=== PATIENT | male | born 1940 | race Caucasian/White ===

== ENCOUNTER → 2017-06-15 | Day surgery (SDC) | payer OTHER ==
--- NOTE | 2017-06-14 13:30 | History & Physical Pre-Op ---
General Information and HPI History of Present Illness: Patient presents for evaluation of 2 processes. He has increasing size and have a long-standing left inguinal hernia. It has been present for many years and it has been observed successfully. He now notes increasing size of it associated with intermittent constipation. There is no bloating or severe pain. It spontaneously reduces at night. Allergies/Medications Allergies: Coded Allergies: No Known Allergies (06/14/17) Home Med list Ciprofloxacin HCl (Cipro) 500 MG TABLET 1 TAB PO BID diverticulitis Metronidazole (Flagyl) 500 MG TABLET 1 TAB PO TID diverticulitis Multivitamin (Multi-Day Vitamins) 1 EACH TABLET 0.5 TAB PO DAILY SUPPLEMENT ( Reported) Naproxen Sodium (Aleve) 220 MG CAPSULE 1 CAP PO DAILY PAIN (Reported) Nystatin 100,000 UNIT/GRAM OINT...G. 1 GOYO TOP TID fungal infection apply to affected area(s) Past History Medical History Gastrointestinal: GERD, hiatal hernia Musculoskeletal: rheumatoid arthritis Surgical History Pertinent Surgical History: spinal fusion, ankle , tonsillectomy Past Family/Social History Psychosocial History Smoking Status: Never Smoked ETOH Use: occasional use Review of Systems Review of Systems: Patient reports hearing loss but reports no ear pain, no sneezing, no frequent nosebleeds, no nose/sinus problems, no bleeding gums, no snoring, no dry mouth, no mouth ulcers, no teeth problems, no headaches, and no sore throat. He reports shortness of breath but reports no cough, no wheezing, and no coughing up blood. He reports vomiting, constipation, and difficulty swallowing but reports normal appetite, no abdominal pain, no vomiting blood, no bloating, no diarrhea, no belching, no constipation, no regurgitation, and no rectal bleeding. He reports difficulty urinating but reports no incontinence, no hematuria, and no increased frequency. He reports arthralgias/joint pain but reports no muscle aches, no muscle weakness, and no back pain. He reports no fatigue, no fever, no night sweats, no significant weight gain, no significant weight loss, and no exercise intolerance. He reports no abnormal moles, no jaundice, no hives, no eczema, and no rashes. He reports no swollen glands and no neck stiffness. He reports no chest pain, no arm pain on exertion, no shortness of breath when walking, no shortness of breath when lying down, no palpitations, and no known heart murmur. Exam & Diagnostic Data Last 24 Hrs of Vital Signs/I&O Intake & Output 06/14 1600 06/14 0800 05/08 0000 Intake Total Output Total Balance Patient 165 lb Weight Physical Exam: Patient is a 76-year-old male. Constitutional: General Appearance: healthy-appearing, well-nourished, and well- developed. Level of Distress: no acute distress. Ambulation: ambulating normally. Head: Head: normocephalic and atraumatic. Cardiovascular: Heart Auscultation: normal S1 and S2; no murmurs, rubs, or gallops; and regular rate and rhythm. Lungs: Respiratory effort: no dyspnea. Percussion: no dullness, flatness, or hyperresonance. Auscultation: no wheezing, rales/crackles, or rhonchi and breath sounds normal, good air movement, and clear to auscultation. Back: Thoracolumbar Appearance: normal curvature. Abdomen: Inspection and Palpation: no tenderness, guarding, masses, rebound tenderness, or CVA tenderness and soft and non-distended. Bowel Sounds: normal. Liver: non-tender and no hepatomegaly. Spleen: non-tender and no splenomegaly. Hernia: inguinal (Bilateral L>R. right contains large amount of bowel.). Skin: Inspection and palpation: no rash, lesions, ulcer, induration, nodules, jaundice, or abnormal nevi and good turgor. Musculoskeletal:: Extremities: no cyanosis, edema, varicosities, or palpable cord. Motor Strength and Tone: normal tone and motor strength. Joints, Bones, and Muscles: no contractures, malalignment, tenderness, or bony abnormalities and normal movement of all extremities. Assessment/Plan Assessment/Plan: Bilateral inguinal hernia - Patient has large left-sided inguinal hernia containing bowel and a smaller right-sided hernia. Given the bowel containing nature of his inguinal hernia, I recommend he undergo inguinal hernia repair, bilateral robot assisted laparoscopic, at his earliest convenience. concurrently would not be so. K40.20: Bilateral inguinal hernia, without obstruction or gangrene, not specified as recurrent Discussion Notes Discussed laparoscopic preperitoneal hernia repair with mesh, the need for general anesthesia to perform it and the outpatient nature of surgery. Discussed the outcomes of surgery including 3-5% recurrence rate, 1% infection and bleeding risk. Discussed the permanent nature of mesh for repair and need for removal if infection occurs. Discussed the small risk of testicular vessel injury and vas deferens injury (males). As Ranked By This Provider Problem List: 1. Bilateral inguinal hernia
[~2017-06-15] VITALS: Ht 177.8 cm; Wt 74.8 kg
[~2017-06-15] MED LIST: ALEVE220 M1 PO; CIPRO500 M1 PO; FLAGYL500 MG PO; MULTI-DAY VITA1 EACH PO; NYSTATIN15 GM TOP
--- NOTE | 2017-06-15 15:50 | Operative Report ---
Operative/Inv Procedure Report Surgery Date: 06/15/17 Name of Procedure: Robot-assisted laparoscopic bilateral inguinal hernia repair Pre-Operative Diagnosis: Bilateral inguinal hernia Post-Operative Diagnosis: Same Estimated Blood Loss: scant Surgeon/Barometers Calibrator: Marlon SOUZA,Antoine Sinha/Marilyn AGUERO Anesthesia: general endotracheal tube Implants: Parietex mesh Operative/Procedure Note Note: After consent is brought to the operating room laid supine. Gen. anesthesia was obtained and his abdomen was prepped and draped. The skin above the umbilicus was after local anesthesia and a transverse incision made sharply. We dissected down the fascia and grasped with Kyle's. A fasciotomies crated sharply and stay sutures placed. An 8 mm Ramirez port was placed and pneumoperitoneum achieved. 2, 8 mm ports were placed in the left and right mid abdomen under direct vision and camera. The robot was undocked and instruments inserted and direct vision. Began or dissection on the left side. There is a very large indirect hernia containing sigmoid colon. It was reduced. We then took down the peritoneum superiorly and created preperitoneal plane. This carried forth down to the pubis and the tract space was cleared. There is no direct hernia. We then went laterally and developed the iliopubic tract. Sac was then circumferentially dissected with blunt and scissor cautery dissection. This took some time as was a very large sac. It was then reflected inferiorly and the peritoneum dissected free from the cord structures. Once I was happy with the dissection attention was turned to the contralateral side. In similar fashion superiorly based flap was created of peritoneum. There was a small indirect hernia which was identified and reduced. The direct space and indirect spaces were then dissected adequately to accept a piece of repair no mesh. 2 pieces of Parietex mesh were placed in the cavity. There placed over the defects and sutured along Mayur's ligament with 2-0 Vicryl suture. There anchored anteriorly with interrupted 2-0 Vicryl. Once were happy the placement of mesh the peritoneum was then closed over them with a running 2-0V LOC absorbable suture. The needles were then extracted and passed off the field. The ports were delivered and gas allowed to escape. The fascia was closed with 0 Vicryl suture. Skin incisions closed with 4-0 Vicryl. Steri-Strips and sterile dressing applied. Sponge and needle counts are correct CC: Marian SOUZA,Bobo Berman
== END ==
LOC: STS 04:18
DX: K40.20 Bilateral inguinal hernia, without obstruction or gangrene, not specified as recurrent (principal); M06.9 Rheumatoid arthritis, unspecified; K21.9 Gastro-esophageal reflux disease without esophagitis; K44.9 Diaphragmatic hernia without obstruction or gangrene
CPT/HCPCS: C1781; C9399; J0131; J0690; J2250